=== PATIENT | male | born 1945 | race Caucasian/White ===

== ENCOUNTER → 2020-11-10 09:39 | Outpatient (CLI) | payer MEDICARE, SELFPAY ==
[2020-11-10 11:23] LABS: Alanine Aminotransferase 21 IU/L (<50); Albumin 4.2 g/dL (3.5-5.0); Albumin Globulin Ratio 1.4 (1.0-2.8); Alkaline Phosphatase 63 U/L (38-126); Aspartate Aminotransferase 31 IU/L (17-59); BUN Creatinine Ratio 18.6 (6-22); Bilirubin Total 0.7 mg/dL (0.2-1.3); Blood Urea Nitrogen 19 mg/dL (9-20); Calcium 9.2 mg/dL (8.4-10.2); Carbon Dioxide 29 mmol/L (22-32); Chloride 102 mmol/L (98-107); Cholesterol 152 mg/dL (140-199); Estimated Glomerular Filt Rate > 60.0 mL/min (>60); Glucose 109 mg/dL (80-110); HDL Cholesterol 44 mg/dL (40-60); HEMOLYSIS < 15 (0-50); LDL Cholesterol Calculated 92 mg/dL (<100); Potassium 3.9 mmol/L (3.4-5.1); Sodium 139 mmol/L (137-145); Total Protein 7.2 g/dL (6.3-8.2); Triglycerides 81 mg/dL (35-150)
[2020-11-11 04:11] LABS: Prostate Specific Antigen Scrn 2.15 ng/mL (0.1-4.0)
== END ==
PROVIDERS: PCP Internal Medicine; Referring Provider Internal Medicine; Visit Provider Internal Medicine
DX: E78.2 Mixed hyperlipidemia (principal); Z12.5 Encounter for screening for malignant neoplasm of prostate; Z13.1 Encounter for screening for diabetes mellitus
CPT/HCPCS: 36415; 80053; 80061; G0103

== ENCOUNTER → 2021-12-02 10:46 | Outpatient (CLI) | payer MEDICARE, SELFPAY ==
[2021-12-03 03:06] LABS: HEMOLYSIS < 15 (0-50)
[2021-12-03 03:11] LABS: Alanine Aminotransferase 21 IU/L (<50); Albumin Globulin Ratio 1.4 (1.0-2.8); Alkaline Phosphatase 76 U/L (38-126); Aspartate Aminotransferase 28 IU/L (17-59); BUN Creatinine Ratio 18.5 (6-22); Bilirubin Total 0.7 mg/dL (0.2-1.3); Blood Urea Nitrogen 17 mg/dL (9-20); Calcium 8.8 mg/dL (8.4-10.2); Carbon Dioxide 28 mmol/L (22-32); Chloride 105 mmol/L (98-107); Cholesterol 161 mg/dL (140-199); Estimated Glomerular Filt Rate > 60 mL/min (>60); Globulin 2.9 g/dL (1.7-4.1); Glucose 109 mg/dL (80-110); HDL Cholesterol 42 mg/dL (40-60); LDL Cholesterol Calculated 92 mg/dL (<100); Potassium 4.3 mmol/L (3.4-5.1); Sodium 141 mmol/L (137-145); Total Protein 6.9 g/dL (6.3-8.2); Triglycerides 134 mg/dL (35-150)
[2021-12-04 15:07] LABS: Prostate Specific Antigen Scrn 2.29 ng/mL (0.1-4.0)
== END ==
PROVIDERS: PCP Internal Medicine; Referring Provider Internal Medicine; Visit Provider Internal Medicine
DX: E78.2 Mixed hyperlipidemia (principal); Z12.5 Encounter for screening for malignant neoplasm of prostate; K40.90 Unilateral inguinal hernia, without obstruction or gangrene, not specified as recurrent
CPT/HCPCS: 36415; 80053; 80061; G0103

== ENCOUNTER → 2022-04-24 11:08 | Outpatient (CLI) | payer MEDICARE, SELFPAY ==
[2022-04-24 12:22] LABS: COVID19 -Nasal RAPID Negative (Negative)
== END ==
PROVIDERS: PCP Internal Medicine; Visit Provider Surgery
DX: Z01.812 Encounter for preprocedural laboratory examination (principal); Z20.822 Contact with and (suspected) exposure to COVID-19
CPT/HCPCS: 87635; C9803

== ENCOUNTER 2022-04-25 10:08 | Day surgery (SDC) | payer MEDICARE, SELFPAY ==
[2022-04-25] MEDS: LACTATED RINGERS 1,000 ML 200 ML IV (10:24)
[2022-04-25 10:25] VITALS: BP 131/87; PULSE 76; RESP 18; TEMP 36.4; O2SAT 95; BMI 27.7
--- NOTE | 2022-04-25 10:59 | PM.HP.1 ---
History of Present Illness History of Present Illness Date Patient Seen: 04/25/22 Time Patient Seen: 10:59 Chief complaint: Colonoscopy Narrative: The patient presents for colorectal screening. Previous colonoscopy 10 years ago normal. No personal or family history of colon cancer. On further history denies any recent gastrointestinal symptoms. No nausea, vomiting, abdominal pain, loss of appetite, unexplained weight loss, change in bowel habits, diarrhea, constipation, melena, hematochezia, or bright red blood per rectum. Patient History Medical History History of TIA (transient ischemic attack) Left inguinal hernia Mixed hyperlipidemia Skin cancer (~2015) TIA (transient ischemic attack) (~2015) Surgical History Anesthesia History of cataract removal with insertion of prosthetic lens (~2002) History of ear surgery (~2015) Family & Social History Family History Father Leukemia Mother Respiratory failure Social History: household members spouse Tobacco & Substance use: Smoking Status Former smoker alcohol intake frequency holiday/special occasion Substance Use Type does not use Meds Home Medications and Allergies Home Medications Medication Instructions Recorded Confirmed Type Vitamin B 1 tab PO DAILY 06/25/20 04/25/22 History ascorbate calcium (vitamin C) 500 500 mg PO DAILY 06/25/20 04/25/22 History mg tablet aspirin 81 mg tablet,delayed 81 mg PO DAILY 06/25/20 04/25/22 History release (Adult Low Dose Aspirin) multivitamin 1 tab PO DAILY 06/25/20 04/25/22 History omega-3 fatty acids 1,000 mg 1,000 mg PO DAILY 06/25/20 04/25/22 History capsule (Fish Oil Concentrate) simvastatin 40 mg tablet 40 mg PO DAILY #90 tabs 01/03/22 04/25/22 Rx Allergies Allergy/AdvReac Type Severity Reaction Status Date / Time No Known Drug Allergies Allergy Verified 04/25/22 10:24 Exam Vital Signs (past 8 hours): - 04/25/22 10:25 Temperature 97.5 F L Pulse Rate 76 Respiratory Rate 18 Blood Pressure 131/87 Pulse Oximetry 95 Oxygen Delivery Method Room Air Oxygen Delivery Method Room Air Narrative Exam Narrative: General elderly man alert oriented no acute distress Abdomen soft nontender nondistended Assessment & Plan Assessment & Plan narrative: The patient requires colorectal screening and colonoscopy is recommended. Technical details were discussed. Risks, benefits, alternatives explained. Risks including but not limited to myocardial infarction, aspiration, bleeding, pain, missed lesion, incomplete examination, need for further radiographic studies, colonic perforation, and need for major abdominal surgery were discussed. All questions were answered to their satisfaction, and they are in agreement with this plan. Time Spent With Patient Critical Care time: I spent a total of [] minutes of critical care time on this patient's care today; this time is exclusive of procedural time.
--- NOTE | 2022-04-25 11:00 | PM.OP.COLON ---
Operative Date/Time/Diagnoses Date of procedure: 04/25/22 Time of procedure: 11:00 Pre-op diagnosis: Screening colonoscopy Post-op diagnosis: same Procedure & Clinicians Study performed: Colonoscopy Same procedure as scheduled: Yes Indications: Screening Surgeon: Reji Lundberg Procedure Notes Procedure in detail: The history and physical was performed/updated and the patient is ASA class is 2. The procedure was discussed in detail with the patient. Potential risks complications including infection, bleeding, missed diagnosis, perforation, need for surgery, and were explained. Their questions were answered and informed consent was obtained. Patient was brought to the procedure room and placed standard monitoring equipment. The patient's vital signs were monitored continuously throughout the entire procedure. Prior to starting time-out was performed. The patient was placed in the left lateral recumbent position. Procedural sedation was administered by anesthesia. Examination began with a thorough inspection of the perianal area there was no evidence of fissures, fistulae, external hemorrhoids or cutaneous malignancy. The colonoscopy scope was then placed into the anal canal and was advanced to the cecum, which was identified by the ileocecal valve, the appendiceal orifice and the confluence of the taenia. The scope was then slowly withdrawn examining colon thoroughly in all directions, irrigating it of any residual stool. FINDINGS 1. No masses or polyps 2. Extensive parsons diverticulosis The patient tolerated the procedure well. They will be discharged once criteria are met. The prep was of fair quality. The withdrawl time was 6 minutes. Specimen(s): none sent Complications: none Impression: Diverticulosis Post-procedure Recommendations: High fiber diet Plan for aftercare: No further colonoscopy is necessary Disposition: same day surgery
[2022-04-25 11:32] VITALS: BP 91/62; PULSE 62; RESP 10; TEMP 36.2; O2SAT 96
[2022-04-25 11:36] VITALS: BP 91/62; PULSE 72; RESP 10; O2SAT 96
[2022-04-25 11:41] VITALS: BP 93/69; PULSE 73; RESP 12; TEMP 36.1; O2SAT 94
[2022-04-25 11:46] VITALS: BP 109/78; PULSE 75; RESP 12; TEMP 36.1; O2SAT 95
[2022-04-25 12:02] VITALS: BP 125/82; PULSE 59; RESP 12; TEMP 36.4; O2SAT 97
== END 2022-04-25 12:25 | disposition home or self-care (01) ==
PROVIDERS: PCP Internal Medicine; Referring Provider Surgery; Visit Provider Surgery
PROC: 0DJD8ZZ Inspection of Lower Intestinal Tract, Via Natural or Artificial Opening Endoscopic (ICD-10-PCS; CPT 45378; principal; 2022-04-25 11:30)
DX: Z12.11 Encounter for screening for malignant neoplasm of colon (principal); Z86.73 Personal history of transient ischemic attack (TIA), and cerebral infarction without residual deficits; K57.30 Diverticulosis of large intestine without perforation or abscess without bleeding
CPT/HCPCS: G0121; J2704; J3010

== ENCOUNTER → 2022-12-06 10:53 | Outpatient (CLI) | payer MEDICARE, SELFPAY ==
[2022-12-06 13:43] LABS: Alanine Aminotransferase 22 IU/L (<50); Albumin 4.1 g/dL (3.5-5.0); Albumin Globulin Ratio 1.5 (1.0-2.8); Alkaline Phosphatase 72 U/L (38-126); Aspartate Aminotransferase 24 IU/L (17-59); BUN Creatinine Ratio 17.8 (6-22); Bilirubin Total 0.9 mg/dL (0.2-1.3); Blood Urea Nitrogen 16 mg/dL (9-20); Calcium 8.6 mg/dL (8.4-10.2); Carbon Dioxide 27 mmol/L (22-32); Chloride 103 mmol/L (98-107); Cholesterol 159 mg/dL (140-199); Estimated Glomerular Filt Rate > 60 mL/min (>60); Globulin 2.7 g/dL (1.7-4.1); Glucose 105 mg/dL (80-110); HDL Cholesterol 39 mg/dL (40-60); HEMOLYSIS < 15 (0-50); LDL Cholesterol Calculated 91 mg/dL (<100); Potassium 3.8 mmol/L (3.4-5.1); Sodium 138 mmol/L (137-145); Total Protein 6.8 g/dL (6.3-8.2); Triglycerides 144 mg/dL (35-150)
== END ==
PROVIDERS: PCP Internal Medicine; Referring Provider Internal Medicine; Visit Provider Internal Medicine
DX: E78.2 Mixed hyperlipidemia (principal)
CPT/HCPCS: 36415; 80053; 80061

== ENCOUNTER 2023-04-11 09:53 | Day surgery (SDC) | payer MEDICARE, SELFPAY ==
[2023-04-05 12:25] VITALS: BMI 30.1
[2023-04-11] VITALS (9 sets, daily range): BP systolic 116–138; BP diastolic 73–86; PULSE 65–99; RESP 10–16; TEMP 36.1–36.5; O2SAT 70–99; BMI 29.4
--- NOTE | 2023-04-11 10:31 | P.HP_ITS ---
History of Present Illness History of Present Illness Date Patient Seen: 04/11/23 Time Patient Seen: 10:31 Chief complaint: Left Hernia Repair - Inguinal Narrative: 77M with a large bowel containing inguinal hernia here for open repair. No interval changes in health. Please refer to H&P January 07 for further detail. FOR[facility] Medical History History of TIA (transient ischemic attack) Left inguinal hernia Mixed hyperlipidemia Skin cancer (~2015) TIA (transient ischemic attack) (~2015) Surgical History Anesthesia History of cataract removal with insertion of prosthetic lens (~2002) History of ear surgery (~2015) Family History Father Leukemia Mother Respiratory failure Social History household members: spouse Smoking Status: Former smoker alcohol intake: current Meds Home Medications and Allergies Home Medications Medication Instructions Recorded Confirmed Type Vitamin B 1 tab PO DAILY 06/25/20 04/11/23 History ascorbate calcium (vitamin C) 500 500 mg PO DAILY 06/25/20 04/11/23 History mg tablet multivitamin 1 tab PO DAILY 06/25/20 04/11/23 History omega-3 fatty acids 1,000 mg 1,000 mg PO DAILY 06/25/20 04/11/23 History capsule (Fish Oil Concentrate) simvastatin 40 mg tablet 40 mg PO DAILY #90 tabs 12/12/22 04/11/23 Rx Allergies Allergy/AdvReac Type Severity Reaction Status Date / Time No Known Drug Allergies Allergy Verified 04/11/23 10:14 Exam Narrative Exam Narrative: Gen-Adult man alert and oriented Chest-Non labored resp Abdomen-Left inguinal hernia marked with my initials Assessment & Plan Assessment and plan (1) Left inguinal hernia: Status: Inactive Assessment & Plan narrative: 77M with a large symptomatic left inguinal hernia here for open repair. Overview of operation again discussed. Risks including hemorrhage, infection, reoccurrence, damage to surrounding structures, and reoccurrence discussed. he provides his written and verbal consent to proceed.
[2023-04-11] MEDS: LACTATED RINGERS 1,000 ML 100 ML IV ×2 (10:35→12:24)
[2023-04-11] MEDS: CEFAZOLIN 2 GM/100 ML PREMIX 100 ML IV (11:00)
--- NOTE | 2023-04-11 11:21 | SUR.OPER ---
Supine on padded OR bed, head on pillow, arms secured on padded arm boards at <90 degrees abduction, legs uncrossed, safety belt at thigh, tape over blanket over lower legs.
[2023-04-11] MEDS: BUPIVACAINE 0.25% (PF) VIAL 30 ML INJ (11:35)
--- NOTE | 2023-04-11 12:39 | PM.OP.1 ---
Operative Date/Time/Diagnoses Date of procedure: 04/11/23 Time of procedure: 12:39 Pre-op diagnosis: Left inguinal hernia Post-op diagnosis: same Procedure & Clinicians Procedure: Open left inguinal hernia repair Same procedure as scheduled: Yes Indications: 77-year-old man with bowel containing symptomatic left inguinal hernia here for open repair Surgeon: Reji Lundberg Anesthesia Type: General Operative Notes Findings: Chronically incarcerated sigmoid colon within the hernia sac Specimen(s): none sent Estimated Blood Loss (mL): 40 Procedure in detail: The patient was placed supine on the table and bilateral lower extremity compression devices were applied. Anesthesia was induced they were intubated with an ETT and received Ancef. A time-out was performed. They were prepped and draped in sterile fashion. The left external inguinal ring and the anterior superior iliac crest were identified and marked. 1 finger breath above the inguinal ligament the skin was infiltrated with 0.25% bupivacaine. The skin incision was made, the subcutaneous tissues were divided with electrocautery exposing the external oblique aponeurosis which was then opened along the direction of its fibers. Using blunt dissection the internal oblique aporneurosis was from the external oblique upper leaflet. The cord was very large and contained bowel. I was unable to dissect the cord away from the pubic tubercle in the standard fashion. The cord was opened and the sigmoid colon was exposed. It was carefully dissected off the the cord structures a 2 mm length serosal tear was imbircated with silk suture. Ultimately the colon was returned to the abdominal cavity. The remainder of the cord was carefully dissected away from the inguinal canal adjacent to the pubic tubercle and encircled with a Reny drain. No direct floor defect was identified. A 7x 15 cm lightweight Bard Pro Loop hernia mesh was anchored to the insertion of the rectus muscle at the pubic tubercle such that there was approximately 2 cm of tubercle overlap with Ethibond. The inferior edge of the mesh was secured to the shelving edge of the inguinal ligament using Ethibond. Interrupted 3 0 Vicryl suture was used to anchor the superior aspect of the mesh to the conjoined tendon in several places. The tails were then reapproximated loosely around the spermatic cord. The tails of the mesh were then tucked under the external oblique aponeurosis. The repair was checked for hemostasis. The wound was irrigated with sterile saline. The external oblique aponeurosis was reapproximated in a running fashion using 3 0 Vicryl. The subcutaneous tissues were reapproximated with 3 0 Vicryl skin closed with 4 0 Monocryl followed by the application of Dermabond. At the end of the operation I ensured that both testicles were within the scrotum. The sponge instrument count at the end operation was correct. The patient emerged from anesthesia was extubated and transferred to the postoperative care unit in stable condition. A total of 30 ml of of 0.25% bupivicaine was used to infiltrate the skin. Complications: none Post-operative Condition: stable Disposition: same day surgery
[2023-04-11] MEDS: HYDROCODONE/ACET 5/325 TABLET 1 TAB PO ×2 (12:57→13:29)
== END 2023-04-11 14:34 | disposition home or self-care (01) ==
PROVIDERS: PCP Internal Medicine; Referring Provider Surgery; Visit Provider Surgery
PROC: (CPT 49507; principal; 2023-04-11 12:15)
DX: K40.30 Unilateral inguinal hernia, with obstruction, without gangrene, not specified as recurrent (principal); Z86.73 Personal history of transient ischemic attack (TIA), and cerebral infarction without residual deficits
CPT/HCPCS: 49507; 82962; J0690; J1100; J2250; J2405; J2704; J3010

== ENCOUNTER → 2023-12-06 10:29 | Outpatient (CLI) | payer MEDICARE, SELFPAY ==
[2023-12-06 11:50] LABS: Add Manual Diff / Slide Review NO; Basophils Absolute Auto 0 /uL (0-100); Basophils Percent Auto 0.6 % (0-2); Eosinophils Absolute Auto 300 /uL (0-450); Eosinophils Percent Auto 4.6 % (2-4); Hematocrit 42.6 % (41-53); Hemoglobin 14.8 g/dL (13.5-17.5); Lymphocytes Absolute Auto 2700 /uL (1100-4500); Lymphocytes Percent Auto 42.7 % (25-40); Mean Corpuscular HGB Conc 34.7 % (30-36); Mean Corpuscular Hemoglobin 31.3 PG (26-34); Monocytes Absolute Auto 700 /uL (0-900); Monocytes Percent Auto 11.8 % (3-14); Neutrophils Absolute Auto 2500 /uL (1500-7000); Neutrophils Percent Auto 40.3 % (50-75); Platelet Count 173 X10^3/uL (150-400); Red Blood Cell Count 4.73 X10^6/uL (4.5-5.9); Red Cell Distribution Width 13.2 % (11.6-14.8); White Blood Cell Count 6.3 X10^3/uL (4.5-11.0)
[2023-12-06 12:16] LABS: Alanine Aminotransferase 22 IU/L (<50); Albumin 4.2 g/dL (3.5-5.0); Albumin Globulin Ratio 1.4 (1.0-2.8); Alkaline Phosphatase 79 U/L (38-126); Aspartate Aminotransferase 26 IU/L (17-59); BUN Creatinine Ratio 20.6 (6-22); Bilirubin Total 0.8 mg/dL (0.2-1.3); Blood Urea Nitrogen 21 mg/dL (9-20); Calcium 8.9 mg/dL (8.4-10.2); Carbon Dioxide 29 mmol/L (22-32); Chloride 106 mmol/L (98-107); Cholesterol 162 mg/dL (140-199); Estimated Glomerular Filt Rate > 60 mL/min (>60); Glucose 111 mg/dL (80-110); HDL Cholesterol 43 mg/dL (40-60); HEMOLYSIS < 15 (0-50); LDL Cholesterol Calculated 89 mg/dL (<100); Potassium 4.4 mmol/L (3.4-5.1); Sodium 139 mmol/L (137-145); Total Protein 7.2 g/dL (6.3-8.2); Triglycerides 152 mg/dL (35-150)
== END ==
PROVIDERS: PCP Internal Medicine; Referring Provider Internal Medicine; Visit Provider Internal Medicine
DX: E78.2 Mixed hyperlipidemia (principal); K40.90 Unilateral inguinal hernia, without obstruction or gangrene, not specified as recurrent; D64.9 Anemia, unspecified
CPT/HCPCS: 36415; 80053; 80061; 85025

== ENCOUNTER → 2025-01-16 09:47 | Outpatient (CLI) | payer MEDICARE, SELFPAY ==
[2025-01-16 10:45] LABS: Alanine Aminotransferase 21 IU/L (<50); Albumin 4.3 g/dL (3.5-5.0); Albumin Globulin Ratio 1.5 (1.0-2.8); Alkaline Phosphatase 78 U/L (38-126); Blood Urea Nitrogen 16 mg/dL (9-20); Calcium 9.1 mg/dL (8.4-10.2); Carbon Dioxide 26 mmol/L (22-32); Chloride 105 mmol/L (98-107); Cholesterol 159 mg/dL (140-199); Estimated Glomerular Filt Rate > 60 mL/min (>60); Globulin 2.8 g/dL (1.7-4.1); Glucose 124 mg/dL (70-99); HDL Cholesterol 41 mg/dL (40-60); HEMOLYSIS < 15 (0-50); Potassium 4.1 mmol/L (3.4-5.1); Sodium 139 mmol/L (137-145); Total Protein 7.1 g/dL (6.3-8.2); Triglycerides 146 mg/dL (35-150)
== END ==
PROVIDERS: PCP Internal Medicine; Referring Provider Internal Medicine; Visit Provider Internal Medicine
DX: E78.2 Mixed hyperlipidemia (principal)
CPT/HCPCS: 36415; 80053; 80061